=== PATIENT | male | born 1970 | race African-American/Black ===

== ENCOUNTER 2018-05-07 16:22 | Emergency (ER) | payer SELFPAY ==
[~2018-05-07] VITALS: Ht 172.7 cm; Wt 68.0 kg
[2018-05-07 16:32] VITALS: BP 136/61
[2018-05-07] MEDS ORDERED: DOCUSATE 100 MG/10 ML SOLUTION. AU STA (16:49)
--- NOTE | 2018-05-07 17:49 | PHYS DOC ---
Past Medical History Past Medical History: Cancer Additional Past Medical Histor: testicular ca Past Surgical History: Other Additional Past Surgical Histo: testicle removed Alcohol Use: Heavy Drug Use: Marijuana Adult General Chief Complaint Chief Complaint: EARACHE/EAR PAIN HPI HPI Patient is a 47 year old male who presents complaining of bilateral ears cerumen impaction for 1 wk, he states this is a chronic problem, he states he has tried [id number] remedies with no relief. Patient denies any fever. Denies any cough or congestion. Review of Systems Review of Systems Constitutional: Denies fever or chills [] Eyes: Denies change in visual acuity, redness, or eye pain [] HENT: Reports cerumen impaction. Denies nasal congestion or sore throat [] Respiratory: Denies cough or shortness of breath [] Cardiovascular: No additional information not addressed in HPI [] GI: Denies abdominal pain, nausea, vomiting, bloody stools or diarrhea [] : Denies dysuria or hematuria [] Musculoskeletal: Denies back pain or joint pain [] Integument: Denies rash or skin lesions [] Neurologic: Denies headache, focal weakness or sensory changes [] All other systems were reviewed and found to be within normal limits, except as documented in this note. Current Medications Current Medications Current Medications Medications (Trade) Dose Ordered Sig/Asha Start Time Stop Time Status Last Admin Dose Admin Docusate Sodium (Colace Solution) 100 mg 1X STAT 05/07/18 16:49 05/07/18 16:52 DC 05/07/18 16:57 100 MG Allergies Allergies Allergies Coded Allergies Type Severity Reaction Last Updated Verified No Known Drug Allergies 05/07/18 No Physical Exam Physical Exam Constitutional: Well developed, well nourished, no acute distress, non-toxic appearance. [] HENT: Normocephalic, atraumatic, bilateral external ears normal, oropharynx moist, no oral exudates, nose normal. Bilateral ear canals are impacted with cerumen bilaterally Eyes: PERRLA, EOMI, conjunctiva normal, no discharge. [] Neck: Normal range of motion, no tenderness, supple, no stridor. [] Cardiovascular:Heart rate regular rhythm, no murmur [] Lungs & Thorax: Bilateral breath sounds clear to auscultation [] Abdomen: Bowel sounds normal, soft, no tenderness, no masses, no pulsatile masses. [] Skin: Warm, dry, no erythema, no rash. [] Back: No tenderness, no CVA tenderness. [] Extremities: No tenderness, no cyanosis, no clubbing, ROM intact, no edema. [] Neurologic: Alert and oriented X 3, normal motor function, normal sensory function, no focal deficits noted. [] Psychologic: Affect normal, judgement normal, mood normal. [] Current Patient Data Vital Signs Vital Signs Date Time Temp Pulse Resp B/P (MAP) Pulse Ox O2 Delivery O2 Flow Rate FiO2 05/07/18 16:32 98.2 101 18 136/61 (86) 97 Room Air 98.2 EKG EKG [] Radiology/Procedures Radiology/Procedures [] Course & Med Decision Making Course & Med Decision Making Pertinent Labs and Imaging studies reviewed. (See chart for details) Patient has bilateral cerumen impaction, Colace was used to disimpact his ears successfully. Patient was discharged home. F/u with PCP in one week Zack Disclaimer Zack Disclaimer This electronic medical record was generated, in whole or in part, using a voice recognition dictation system. Departure Departure Impression: Primary Impression: Impacted cerumen of both ears Disposition: HOME, SELF-CARE Condition: STABLE Referrals: NO PCP (PCP) AMARA MA MD follow up in one week Patient Instructions: Cerumen Impaction-SportsMed Additional Instructions: We removed cerumen from both the ears. Follow-up with your doctor as needed. Use [id number] ear wax removal as as needed. Attending Signature Attending Signature I have reviewed the PA/RETAIL BUSINESS ANALYST's note and plan of care. I was available for consultation as needed during the patient's visit in the emergency department. I agree with the clinical impression, plan, and disposition. CHARLOTTE PINEDA APRN May 07, 2018 17:49 JESUS SPENCE DO May 10, 2018 06:49
== END 2018-05-07 18:00 | disposition home or self-care (01) ==
LOC: ER 16:22
DX: H61.23 Impacted cerumen, bilateral (principal); F10.20 Alcohol dependence, uncomplicated; Y90.9 Presence of alcohol in blood, level not specified
CPT/HCPCS: 69209; 99282